=== PATIENT | male | born 1970 | race Caucasian/White ===

== ENCOUNTER 2020-10-26 16:20 | Emergency (ER) | payer SELFPAY ==
[2020-10-26 16:32] VITALS: BP 145/89; PULSE 90; RESP 18; TEMP 37.1; O2SAT 96; BMI 32.1
--- NOTE | 2020-10-26 17:13 | USR_ITS ---
PROCEDURE INFORMATION: Exam: US Duplex Right Lower Extremity Veins, Limited Exam date and time: 10/26/2020 5:33 PM Age: 50 years old Clinical indication: Pain; Leg, upper; Right; Additional info: Redness swelling, concern for dvt TECHNIQUE: Imaging protocol: Real-time Duplex ultrasound of the Right Lower Extremity with 2-D alvarez scale, color Doppler flow and spectral waveform analysis with image documentation. Limited exam was focused on the right lower extremity veins. COMPARISON: No relevant prior studies available. FINDINGS: Real-time grayscale, Doppler, color Doppler and duplex imaging of the right lower extremity was performed. Spectral analysis was performed. There is normal flow and compressibility of the common femoral, superficial femoral and popliteal veins. There is normal augmentation. There is no intraluminal thrombus. The visualized calf veins were unremarkable. There is subcutaneous edema. US/[place] [id number] IMPRESSION: No evidence for deep venous thrombosis.
--- NOTE | 2020-10-26 17:15 | W.ED.EXTPRO ---
HPI - Extremity Problem General: Chief complaint: Extremity Injury, Lower Stated complaint: Swollen feet, red leonor on R foot Time Seen by Provider: 10/26/20 17:03 History of Present Illness: HPI Narrative: 50-year-old male patient comes in today with redness and swelling to the right lower extremity. Patient reports 3 days ago while mowing the lawn he felt a sting to the right lower leg. Since then he has had increasing redness and swelling to the right lower leg. Patient denies any fever or chills. Patient denies diabetes. Patient appears well. Patient appears in mild to moderate pain. Review of Systems General: Reports: 10 or more systems reviewed and unremarkable except in HPI and below Musc: Reports: other (Redness and swelling to the right lower leg.) Physical Exam Const: COMMON NORMALS: no acute distress and patient oriented x3 GENERAL APPEARANCE: cooperative HENMT: COMMON NORMALS: normocephalic and Normal external nose present HEAD & SCALP: normal to inspection and normocephalic NOSE: Normal external nose present MOUTH: Normal oral and palatal mucosa present Eye: GENERAL EYE: appearance normal, both eyes and all related structures Neck/C-Spine: COMMON NORMALS: full ROM Lymph: LYMPHATIC: no lymphadenopathy noted Chest: COMMONS NORMALS: normal inspection of the chest Resp: COMMON NORMALS: normal respiratory effort EFFORT & INSPECTION: Yes able to speak in complete sentences Cardio: COMMON NORMALS: regular rate and regular rhythm RATE: regular rate RHYTHM: regular rhythm GI: COMMON NORMALS: non-tender Back/Pelvis: COMMON NORMALS: thoracic and lumbar spine normal to inspection Extremity: NARRATIVE EXTREMITY EXAM: Redness and swelling to the right lower leg, induration is noted to the right lateral ankle, pulses are intact, +2 edema is noted to the extremity. Patient does have edema to this left lower leg that is much less than the right. No calf or popliteal tenderness is noted. Neuro: COMMON NORMALS: patient oriented x3 and moves all extremities Psych: COMMON NORMALS: mental status grossly normal and cooperative Skin: COMMON NORMALS: no rashes or lesions noted GENERAL SKIN EXAM: no rashes or lesions noted Course Vital Signs: Vital signs: Vital Signs Temperature 98.7 F 10/26/20 16:32 Pulse Rate 90 10/26/20 16:32 Respiratory Rate 18 10/26/20 16:32 Blood Pressure 145/89 10/26/20 16:32 Pulse Oximetry 96 10/26/20 16:32 MDM - Extremity (Nontraumatic) MDM Narrative: Medical decision making narrative: Patient comes in for redness and swelling to the right lower extremity. On exam patient has normal pulses and sensation to lower leg. Denies any calf pain or popliteal angle pain. Patient does have some significant swelling and induration in the distal part of the right lower leg with surrounding area of redness. Vital signs are normal. Differential diagnosis includes but not limited to DVT, cellulitis, peripheral vascular disease. Ultrasound of the lower leg indicated no DVT. Patient was started on antibiotics for cellulitis. Reviewed exam with patient with recommendations for follow-up or return to the ER. Patient reported understanding agreed to plan. Patient was given 1 g of Rocephin to start antibiotic and then to follow with Augmentin twice a day for 10 days. Discharge Plan Discharge Patient Disposition: Home Clinical Impression: Cellulitis of right lower leg Condition: Stable Prescriptions: New Augmentin 875-125 mg tablet 1 tab PO BID Qty: 20 RF: 0 Discharge Orders: Discharge ED (Routine); Ordered 10/26/20 Ordered By: Stanislav Venegas Discharge Diet: Usual diet Discharge Activity: Increase activity as tolerated Patient Instructions: Cellulitis (ED), Opioid Safety Activity Restrictions/Additional Instructions: Home and rest, Elevate leg as much as possible. Drink plenty of water with antibiotic. Follow-up with primary care in one week. Return to ER for worsening symptoms or new concerns Coding Level of Care Code ED [employer] Operator for Dinesh Denny Exam Comprehensive
[2020-10-26 18:23] VITALS: BP 124/77; PULSE 73; RESP 18; O2SAT 96
[2020-10-26 18:24] VITALS: BP 124/77; PULSE 73; RESP 18; O2SAT 96
[2020-10-26] MEDS: cefTRIAXone 1,000 MG in lidocaine 1% 2.1 ML 1 MG IM (18:24)
== END 2020-10-26 18:10 | disposition home or self-care (01) ==
PROVIDERS: Emergency Provider Nurse Practitioner Family
DX: L03.115 Cellulitis of right lower limb (principal)
CPT/HCPCS: 93971; 96372; 99283; J0696